=== PATIENT | male | born 1975 ===

== ENCOUNTER 2017-10-19 05:03 | Emergency (ER) | payer SELFPAY ==
[2017-10-19] MEDS ORDERED: MOTRIN ONE (07:52)
[2017-10-19] MEDS ORDERED: MOTRIN PO ONE (07:52)
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
--- NOTE | 2017-10-19 09:34 | XRay Report ---
LUMBOSACRAL SPINE, 3 VIEWS: History: Back pain Findings: The vertebral bodies, disk spaces and posterior elements are intact. No compression deformity or malalignment. The SI joints are symmetric and unremarkable. Impression: 1. No evidence for acute injury to the lumbar spine.
--- NOTE | 2017-10-19 09:35 | XRay Report ---
CERVICAL SPINE, 3 views: History: Neck pain. Findings: The vertebral bodies, disk spaces, posterior elements and prevertebral soft tissues are intact. The dens is intact. Mild degenerative disc disease is noted at C4-5 and C5-6. No acute fracture or malalignment is identified. Impression: Mild cervical spondylosis. No evidence for acute injury to the cervical spine.
[2017-10-19 10:16] VITALS: BP 118/70
== END 2017-10-19 10:15 | disposition home or self-care (01) ==
LOC: ED 05:03
DX: S13.4XXA Sprain of ligaments of cervical spine, initial encounter (principal); S39.012A Strain of muscle, fascia and tendon of lower back, initial encounter; F17.200 Nicotine dependence, unspecified, uncomplicated; V89.2XXA Person injured in unspecified motor-vehicle accident, traffic, initial encounter; Y93.89 Activity, other specified; Y99.8 Other external cause status; Y92.410 Unspecified street and highway as the place of occurrence of the external cause
CPT/HCPCS: 72040; 72100; 99283